=== PATIENT | female | born 1995 | race Caucasian/White ===

== ENCOUNTER → 2020-01-10 | Outpatient (CLI) | payer OTHER ==
[~2020-01-10] MED LIST: MULT-245 PO
== END | disposition home or self-care (01) ==
LOC: LAB 09:28 → MERGE 09:28
PROVIDERS: ATTEND Surgery
DX: Z01.812 Encounter for preprocedural laboratory examination (principal); Z20.828 Contact with and (suspected) exposure to other viral communicable diseases; K81.0 Acute cholecystitis
CPT/HCPCS: U0003-CS

== ENCOUNTER 2020-01-13 06:14 | Day surgery (SDC) | payer OTHER ==
[~2020-01-13] VITALS: Ht 165.1 cm; Wt 119.5 kg
[~2020-01-13 06:14] MED LIST changes: +ACETAMINOPHEN 500 MG TABLET PO ONE; +INDOCYANINE GREEN 2.5 MG in TOTAL VOLUME SYRINGE 1 ML IVP ONE
[2020-01-13] MEDS ORDERED: HYDROmorphone 2 MG/ML VIAL IV PRN (07:00)
[2020-01-13] MEDS ORDERED: PROCHLORPERAZINE 10 MG/2 ML VIAL. IV PRN (07:00)
[2020-01-13] MEDS ORDERED: ONDANSETRON PF 4 MG/2 ML VIAL. IV PRN (07:00)
[2020-01-13] MEDS ORDERED: MORPHINE SULFATE 2 MG/ML VIAL. IV PRN (07:00)
[2020-01-13] MEDS ORDERED: fentaNYL PF VIAL 100 MCG/2 ML VIAL IV PRN ×2 (07:00)
[2020-01-13] MEDS ORDERED: IV RINGERS,LACTATED 1000ML 1,000 ML IV SCH (07:00)
[2020-01-13] MEDS ORDERED: BUPIVACAINE-EPI 0.5%-1:200000 MPF 30 ML VIAL. ONE (07:03)
[2020-01-13] MEDS ORDERED: SURGICEL HEMOSTAT 4X8 EACH. ONE (07:03)
[2020-01-13] MEDS ORDERED: fentaNYL PF VIAL 100 MCG/2 ML VIAL ONE ×3 (07:10→09:17)
[2020-01-13] MEDS ORDERED: MIDAZOLAM HCL/PF 2 MG/2 ML VIAL. ONE (07:10)
[2020-01-13] MEDS ORDERED: PROPOFOL 10 MG/ML (20ML) VIAL. IV ONE (07:11)
[2020-01-13] MEDS ORDERED: ONDANSETRON PF 4 MG/2 ML VIAL. ONE (07:11)
[2020-01-13] MEDS ORDERED: DEXAMETHASONE SOD PHOS 4 MG/ML VIAL ONE (07:11)
[2020-01-13] MEDS ORDERED: LIDOCAINE 2% PF 5 ML VIAL. ONE (07:11)
[2020-01-13] MEDS ORDERED: ROCURONIUM 50 MG/5 ML VIAL. ONE (07:11)
--- NOTE | 2020-01-13 07:26 | PDOC1 ---
History and Physical Date of Admission Date of Admission DATE: 01/13/20 TIME: 07:19 Identification/Chief Complaint Chief Complaint Abdominal pain Source Source: Patient History of Present Illness History of Present Illness 24-year-old female recently had delivery of baby she been having difficulty with abdominal pain previous ultrasounds that showed gallstones. She is also described a bulge at her umbilicus at times consistent with a hernia Past Medical History Cardiovascular: No pertinent hx Pulmonary: No pertinent hx GI: No pertinent hx Heme/Onc: No pertinent hx Hepatobiliary: No pertinent hx Psych: No pertinent hx Rheumatologic: No pertinent hx Infectious disease: No pertinent hx ENT: No pertinent hx Renal/: No pertinent hx Endocrine: Other (Polycystic ovarian disease) Dermatology: No pertinent hx Past Surgical History Past Surgical History: Family History Family History: No Significant Social History Smoke: No ALCOHOL: none Drugs: None Current Medications Current Medications Current Medications Indocyanine Green 2.5 mg/ Miscellaneous 1 ml @ 60 mls/hr 1X ONCE IVP ; Start 01/13/20 at 06:00; Stop 01/13/20 at 06:01; Status DC Ondansetron HCl (Zofran) 4 mg PRN Q6HRS PRN IV NAUSEA/VOMITING; Start 01/13/20 at 07:00; Stop 01/14/20 at 06:59 Fentanyl Citrate (Fentanyl 2ml Vial) 25 mcg PRN Q5MIN PRN IV MILD PAIN 1-3; Start 01/13/20 at 07:00; Stop 01/14/20 at 06:59 Fentanyl Citrate (Fentanyl 2ml Vial) 50 mcg PRN Q5MIN PRN IV MODERATE TO SEVERE PAIN; Start 01/13/20 at 07:00; Stop 01/14/20 at 06:59 Morphine Sulfate (Morphine Sulfate) 1 mg PRN Q10MIN PRN IV SEVERE PAIN 7-10; Start 01/13/20 at 07:00; Stop 01/14/20 at 06:59 Ringer's Solution 1,000 ml @ 30 mls/hr Q24H IV Last administered on 01/13/20at 06:58; Start 01/13/20 at 07:00; Stop 01/13/20 at 18:59 Hydromorphone HCl (Dilaudid) 0.5 mg PRN Q10MIN PRN IV SEV PAIN, Second choice; Start 01/13/20 at 07:00; Stop 01/14/20 at 06:59 Prochlorperazine Edisylate (Compazine) 5 mg PACU PRN PRN IV NAUSEA, MRX1; Start 01/13/20 at 07:00; Stop 01/14/20 at 06:59 Acetaminophen (Tylenol) 1,000 mg ONCE ONCE PO ; Start 01/13/20 at 06:00; Stop 01/13/20 at 06:01; Status DC Cefazolin Sodium/ Dextrose 50 ml @ 100 mls/hr 1X ONCE IV ; Start 01/13/20 at 06:00; Stop 01/13/20 at 06:29; Status DC Bupivacaine HCl/ Epinephrine Bitart (Sensorcain-Epi 0.5%-1:628110 Mpf) 30 ml STK-MED ONCE .ROUTE ; Start 01/13/20 at 07:03; Stop 01/13/20 at 07:03; Status DC Cellulose (Surgicel Hemostat 4x8) 1 each STK-MED ONCE .ROUTE ; Start 01/13/20 at 07:03; Stop 01/13/20 at 07:04; Status DC Fentanyl Citrate (Fentanyl 2ml Vial) 100 mcg STK-MED ONCE .ROUTE ; Start 01/13/20 at 07:10; Stop 01/13/20 at 07:10; Status DC Midazolam HCl (Versed) 2 mg STK-MED ONCE .ROUTE ; Start 01/13/20 at 07:10; Stop 01/13/20 at 07:11; Status DC Propofol (Diprivan) 200 mg STK-MED ONCE IV ; Start 01/13/20 at 07:11; Stop 01/13/20 at 07:11; Status DC Ondansetron HCl (Zofran) 4 mg STK-MED ONCE .ROUTE ; Start 01/13/20 at 07:11; Stop 01/13/20 at 07:11; Status DC Dexamethasone Sodium Phosphate (Decadron) 4 mg STK-MED ONCE .ROUTE ; Start 01/13/20 at 07:11; Stop 01/13/20 at 07:11; Status DC Lidocaine HCl (Lidocaine Pf 2% Vial) 5 ml STK-MED ONCE .ROUTE ; Start 01/13/20 at 07:11; Stop 01/13/20 at 07:11; Status DC Rocuronium [place] (Zemuron) 50 mg STK-MED ONCE .ROUTE ; Start 01/13/20 at 07:11; Stop 01/13/20 at 07:12; Status DC Active Scripts Active Reported Multi Vitamin Daily (Multivitamin) 1 Each Tablet 1 Tab PO DAILY 30 Days Allergies Allergies: Coded Allergies: No Known Drug Allergies (Unverified , 01/13/20) ROS Gastrointestinal: Yes Abdominal Pain Physical Exam General: Alert, Oriented X3, Cooperative, No acute distress HEENT: Atraumatic Lungs: Clear to auscultation, Normal air movement Heart: RRR, no murmurs Abdomen: Normal bowel sounds, Soft, Other (Tender palpation right upper quadrant) Extremities: No edema Skin: No significant lesion Neuro: Normal speech Psych/Mental Status: Mental status NL Vitals Vitals Vital Signs Date Time Temp Pulse Resp B/P (MAP) Pulse Ox O2 Delivery O2 Flow Rate FiO2 01/13/20 06:56 97.1 79 18 108/57 99 Room Air 97.1 VTE Prophylaxis Ordered VTE Prophylaxis Devices: Yes VTE Pharmacological Prophylaxi: Contraindicated Assessment/Plan Assessment/Plan Chronic cholecystitis cholelithiasis plan robotic assisted laparoscopic cholecystectomy and repair of umbilical hernia Justifications for Admission Other Justification PILAR BROCK MD Jan 13, 2020 07:26
--- NOTE | 2020-01-13 08:58 | PDOC4 ---
Operative Note Operative Note Date: 2019 at 854 Preoperative diagnosis: Chronic cholecystitis, umbilical hernia Postoperative diagnosis: Chronic cholecystitis and diastases Procedure: Robotic assisted laparoscopic cholecystectomy with ICG 9 cholangiogram Surgeon: Toby Specimen: Gallbladder Dictation: Patient is a 24-year-old female has been having right upper quadrant abdominal pain since her she did deliver baby is still having right upper quadrant abdominal pain ultrasound showing gallstones. She also be complaining of a bulge at her umbilicus at since her . Procedure of robotic assisted laparoscopic cholecystectomy and umbilical hernia repair were explained to the patient detail was benefits were also discussed including bleeding infection injury to intra-abdominal contents possibly necessitating further or open operations alternatives to this procedure also discussed with the patient who seemed to understand and gave both verbal and written consent to have the procedure performed. Patient was taken to the operating room placed the supine position general anesthesia was initiated once patient was sleeping in bed her abdomen was prepped and draped usual sterile fashion using ChloraPrep. An area just below the umbilicus was injected with quarter percent Marcaine with epinephrine incision was made 11 blade scalpel and a varies needle was placed within the abdomen creating pneumoperitoneum once this was complete 12 mm port was placed and the da Sara 12 mm camera was placed within the abdomen which was inspected was noted the gallbladder in the right upper quadrant no other abnormalities were noted the da Sara 8 mm port was placed in the left midabdomen and one in the right midabdomen the da Sara robot was brought in and docked all port sites surgeon went to the robotic console using a grasper and hook cautery the infundibulum the gallbladder is grasped and retracted laterally exposing the triangle adherent tissues the triangle were taken down with blunt dissection and electrocautery exposing the cystic duct. Firefly was used to do a cholangiogram no stones were noted within the cystic duct common duct was visualized. The cystic artery was clipped with a hemo-lock clip and transected with electrocautery the gallbladder was taken off the liver with hook electrocautery once was completely detached was placed in the right upper quadrant surgeon went back to the operative field using a 5 mm scope and camera was placed in the lateral port the Endo Catch bag was placed through the 12 mm port and the gallbladder was placed within the catch bag and removed from the umbilicus the abdominal wall was visualized with the 5 mm camera appeared to be no hernia defect although she does have a moderate diastases in the midline. At this point the pneumoperitoneum was reduced all ports were removed and the fascial defect at the umbilicus was closed with a [id number] 0 Vicryl suture and skin was reapproximated all port sites for subcuticular Monocryl Mastisol Steri-Strips and island dressings were applied. Patient was awakened and extubated operating room taken to recovery in stable condition all sponge instrument needle counts listed as correct estimated blood loss 10 mL. PILAR BROCK MD Jan 13, 2020 08:58
--- NOTE | 2020-01-13 09:00 | DISCH ---
DISCHARGE INSTRUCTIONS Condition on Discharge Condition on Discharge: Stable Activity After Discharge Activity Instructions for Disc: Avoid exertion Other activity instructions: No lifting more than 20 pounds for 2 weeks Diet after Discharge Diet after Discharge: Low Fat Wound Incision Care Other wound/incision instructi: May shower in 24 hours Contacting the after DC Call your doctor for: If your condition worsens Follow-Up Follow up with: Dr. Brock in 2 weeks PILAR BROCK MD Jan 13, 2020 09:00
[2020-01-13] MEDS ORDERED: oxyCODONE/APAP 5/325 1 TAB TABLET PO ONE ×2 (09:15)
[2020-01-13] MEDS ORDERED: OXYC-325 PO (09:19)
[2020-01-13 10:10] VITALS: BP 112/50
--- NOTE | 2020-01-17 09:06 | PATHOLOGY ---
[facility] Accession Number: [id number] . 01 Material submitted: . gallbladder - GALLBLADDER . 01 Clinical history: . HERNIA, CHOLECYSTITIS . 02 Diagnosis: Gallbladder, robotic assisted laparoscopic cholecystectomy: - Cholelithiasis. - Chronic cholecystitis. (M:aldo; 01/14/2020) R 01/14/2020 1609 Local . 02 Comment: There is no evidence of malignancy. (JPM:aldo; 01/14/2020) . 02 Electronically signed: . Maco aMrtinez MD, Pathologist NPI- [id number] . 01 Gross description: . Received in formalin labeled "Kim Veronica, gallbladder" is an intact cholecystectomy specimen measuring 9.7 x 4.6 x 3.2 cm. The serosa is pink-rodriguez and smooth and the specimen is opened to reveal pale rodriguez focally hemorrhagic mucosa without polyps or masses. The average wall thickness is 0.1-0.2 cm. Multiple yellow-green bosselated calculi are present, measuring in aggregate 2.7 x 2.0 x 0.7 cm and ranging from 0.6-0.7 cm in greatest dimension. 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 ([facility] 01/13/2020) SY/[facility] 01/13/2020 1756 Local . 02 Pathologist provided ICD-10: K80.10 . 02 CPT . 038160 Specimen Comment: A courtesy copy of this report has been sent to [phone] Specimen Comment: Report sent to Performed at: [address], [place], [place] [id number] MD Anthony Ahn MD Phone: [phone] Performed at: 02 [facility] [address] [place] [id number] MD Maco Martinez MD Phone: [phone]
== END 2020-01-13 10:40 | disposition home or self-care (01) ==
LOC: SURG 06:14 → EDSTATUS 07:30 → SURG 10:40
PROVIDERS: ATTEND Surgery
DX: K80.10 Calculus of gallbladder with chronic cholecystitis without obstruction (principal); K42.9 Umbilical hernia without obstruction or gangrene; M62.08 Separation of muscle (nontraumatic), other site; Z79.899 Other long term (current) drug therapy
CPT/HCPCS: 47563; 81025; 88304; A7015; J0690; J0780; J1100; J2250; J2405; J2704; J3010; J3490; J7030; S2900